=== PATIENT | male | born 2005 | race Caucasian/White ===

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

== ENCOUNTER 2024-08-15 10:30 | Emergency (ER) | payer SELFPAY ==
[~2024-08-15] VITALS: Ht 188 cm; Wt 97.5 kg
[~2024-08-15 10:30] MED LIST changes: +AVIDOXY100 MG PO
[2024-08-15 10:57] VITALS: BP 134/68
[2024-08-16] MEDS ORDERED: MUPIROCIN21 TOP (08:10)
== END 2024-08-15 12:49 | disposition left against medical advice (07) | DRG 951 ==
LOC: ED 10:30 → LWOBS 12:49
DX: Z53.21 Procedure and treatment not carried out due to patient leaving prior to being seen by health care provider (principal)

== ENCOUNTER 2024-08-16 07:15 | Emergency (ER) | payer BC ==
[~2024-08-16] VITALS: Ht 188 cm; Wt 98.0 kg
[2024-08-16] MEDS ORDERED: POVIDONE IODINE 0.5 OZ/BTL TOP ONE (07:30)
[2024-08-16] MEDS ORDERED: LIDOcaine HCl 1% (Local Anesth.) 20 ML VIAL STI STA (07:30)
[2024-08-16] MEDS ORDERED: MUPIROCIN (PSEUDOMONAS FLUORES 22 GM/TUBE TUBE TOP ONE (08:10)
[2024-08-16] MEDS ORDERED: MUPIROCIN21 TOP (08:10)
[2024-08-16 08:42] VITALS: BP 119/61
== END 2024-08-16 08:43 | disposition home or self-care (01) | DRG 607 ==
LOC: ED 07:15
PROC: 0HBRXZZ Excision of Toe Nail, External Approach (ICD-10-PCS; principal; 2024-08-16)
DX: L60.0 Ingrowing nail (principal)